=== PATIENT | male | born 1965 ===

== ENCOUNTER 2017-11-29 16:48 | Emergency (ER) | payer OTHER ==
[2017-11-29 16:53] VITALS: BP 131/85; PULSE 83; RESP 18; TEMP 98.3
[2017-11-29] MEDS ORDERED: PROPARACAINE 0.5% OPHTH DROPS 15 ML BTL BOTH EYES STA (18:17)
--- NOTE | 2017-11-29 18:38 | ED ---
General Adult HPI - General Chief complaint: Eye Problems Stated complaint: [employer] splash rt eye Time Seen by Provider: 11/29/17 17:38 Source: patient Mode of arrival: ambulatory Limitations: no limitations - History of Present Illness Initial comments: 52-year-old male presents to the emergency department for a chief complaint of right irritation x 2 hours. 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 Patient states he was wearing protective goggles but it still managed to get into the lateral corner of the eye. Patient denies any visual changes or pain in the right eye. Patient states he immediately irrigated his eye at the eye station for about 15 minutes. Patient states the only symptoms he has right now is a slight dry feeling in the right side of the eye. Patient denies any pain with movement of the eye. Patient denies any pressure behind the eye. Patient appears comfortable and denies any other complaints at this time including shortness of breath and chest pain. - Related Data Previous Rx's Medication Instructions Recorded Erythromycin Ophth Oint [Romycin 1 applic RIGHT EYE QID 5 Days gm 11/29/17 Ophth Oint] Allergies Allergy/AdvReac Type Severity Reaction Status Date / Time No Known Allergies Allergy Verified 11/29/17 16:53 Review of Systems ROS Statement: Those systems with pertinent positive or pertinent negative responses have been documented in the HPI. ROS Other: All systems not noted in ROS Statement are negative. Past Medical History Past Medical History: Hyperlipidemia, Hypertension History of Any Multi-Drug Resistant Organisms: None Reported Past Surgical History: No Surgical Hx Reported Past Psychological History: No Psychological Hx Reported Smoking Status: Never smoker Past Alcohol Use History: None Reported Past Drug Use History: None Reported General Exam Limitations: no limitations Head exam: Present: atraumatic, normocephalic, normal inspection Eye exam: Present: normal appearance, PERRL, EOMI, other (On examination with the Wood's lamp and fluorescein, the eye showed no areas of uptake. No abrasions noted.). Absent: scleral icterus, conjunctival injection (eye is not erythematous on examination), periorbital swelling ENT exam: Present: normal exam, normal oropharynx, mucous membranes moist, TM's normal bilaterally Respiratory exam: Present: normal lung sounds bilaterally. Absent: respiratory distress, wheezes, rales, rhonchi, stridor Cardiovascular Exam: Present: regular rate, normal rhythm, normal heart sounds. Absent: systolic murmur, diastolic murmur, rubs, gallop, clicks Course Vital Signs 11/29/17 16:49 Temperature 98.3 F Pulse Rate 83 Respiratory 18 Rate Blood Pressure 131/85 O2 Sat by Pulse 100 Oximetry Medical Decision Making - Medical Decision Making 52-year-old male presents to the emergency department for a chief complaint of right eye irritation. 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 Patient immediately rinsed his eye at the eyewash station for 15 minutes. He went to [facility] who advised him to come to the emergency department. Patient denies any pain or visual changes. Patient states his eye feels a little dry in the lateral corner where the substance touched his eye. Patient's visual acuity is within normal limits. Patient's eye exam is within normal limits. The eye is not erythematous or irritated appearing. Patient was also numbed with proparacaine and stained with foreseen which showed no focal areas of uptake. Patient was given erythromycin ointment for 5 days. His tetanus is up-to-date. He was given the number for ophthalmology to follow up. He will return to the emergency Department if he notices any worsening symptoms or visual changes. Disposition Clinical Impression: Irritation of eye Disposition: HOME SELF-CARE Condition: Good Instructions: Eye Wash (Into the eye) Additional Instructions: Please return to the emergency department if you have worsening symptoms or your vision begins to change. Otherwise follow-up with primary care doctor or bakery associate. Use antibiotic drops as directed. Prescriptions: Erythromycin Ophth Oint [Romycin Ophth Oint] 1 applic RIGHT EYE QID 5 Days gm Referrals: None,Stated [Primary Care Provider] - 1-2 days Nathalie Vides MD [STAFF PHYSICIAN] - 1-2 days Time of Disposition: 18:38
== END 2017-11-29 19:01 | disposition home or self-care (01) ==
LOC: EC 16:48
DX: H57.8 Other specified disorders of eye and adnexa (principal)
CPT/HCPCS: 99283